=== PATIENT | female | born 1970 | race Caucasian/White ===

== ENCOUNTER → 2017-04-21 | Outpatient (CLI) | payer BC ==
[2004-05-20 20:09] VITALS: PULSE 86; TEMP 97.4
== END ==
LOC: MC.RAD 14:30
DX: Z12.31 Encounter for screening mammogram for malignant neoplasm of breast (principal)

== ENCOUNTER → 2017-05-02 | Outpatient (CLI) | payer BC ==
[2004-05-20 20:09] VITALS: PULSE 86; TEMP 97.4
== END ==
LOC: MC.RAD 04-28 07:30
DX: N63.11 Unspecified lump in the right breast, upper outer quadrant (principal); N63.21 Unspecified lump in the left breast, upper outer quadrant

== ENCOUNTER → 2017-11-06 | Outpatient (CLI) | payer BC ==
[2004-05-20 20:09] VITALS: PULSE 86; TEMP 97.4
== END ==
LOC: MC.RAD 07:28
DX: R92.8 Other abnormal and inconclusive findings on diagnostic imaging of breast (principal)

== ENCOUNTER → 2018-05-24 | Outpatient (CLI) | payer BC ==
[2004-05-20 20:09] VITALS: PULSE 86; TEMP 97.4
== END ==
LOC: MC.RAD 14:00
DX: N63.31 Unspecified lump in axillary tail of the right breast (principal); N63.32 Unspecified lump in axillary tail of the left breast
CPT/HCPCS: G0279

== ENCOUNTER → 2019-05-28 | Outpatient (CLI) | payer BC ==
[2004-05-20 20:09] VITALS: PULSE 86; TEMP 97.4
== END ==
LOC: MC.RAD 05-27 08:15
DX: Z12.31 Encounter for screening mammogram for malignant neoplasm of breast (principal); N64.4 Mastodynia

== ENCOUNTER → 2019-06-04 | Outpatient (CLI) | payer BC ==
[2004-05-20 20:09] VITALS: PULSE 86; TEMP 97.4
== END ==
LOC: MC.RAD 09:30
DX: N63.20 Unspecified lump in the left breast, unspecified quadrant (principal); N64.4 Mastodynia

== ENCOUNTER → 2020-03-06 | Outpatient (CLI) | payer BC ==
[2004-05-20 20:09] VITALS: PULSE 86; TEMP 97.4
== END ==
LOC: MC.RAD 02-11 13:00
DX: N63.21 Unspecified lump in the left breast, upper outer quadrant (principal)